=== PATIENT | male | born 2000 | race African-American/Black ===

== ENCOUNTER 2024-12-12 17:22 | Emergency (ER) | payer OTHER ==
[2024-12-12 17:28] VITALS: BP 139/86; PULSE 90; RESP 18; TEMP 97.6; BMI 24.6
== END 2024-12-12 20:08 | disposition home or self-care (01) ==
LOC: FER 17:22
DX: S01.81XA Laceration without foreign body of other part of head, initial encounter (principal); W01.198A Fall on same level from slipping, tripping and stumbling with subsequent striking against other object, initial encounter; Y93.67 Activity, basketball
CPT/HCPCS: 99283-25